=== PATIENT | male | born 1990 | race Caucasian/White ===

== ENCOUNTER 2018-03-07 17:12 | Emergency (ER) | payer BC ==
[2018-03-07 17:17] VITALS: BP 122/80
--- NOTE | 2018-03-07 17:37 | EDPHY ---
H & P Time Seen by Provider: 03/07/18 17:24 HPI/ROS: CHIEF COMPLAINT: Request for prescription for sertraline HISTORY OF PRESENT ILLNESS: 27-year-old male here with chief complaint of worsening anxiety for the last few weeks. He reports difficulty concentrating and racing thoughts. Feels his anxiety has been exacerbated by her recent relationship. 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 He denies any homicidal or suicidal ideation. He has no prior history of bipolar disorder. He takes no other medication and denies any drug or alcohol use. He has taking sertraline before for the same symptoms and improve significantly. He has been off medication for 2 years. ROS As detailed in HPI Smoking Status: Never smoked Physical Exam: General: Alert and oriented. Nontoxic appearing. No acute distress HEENT: Pupils PERRLA. No oral lesions. Cardiopulmonary: Regular rate and rhythm. No lower extremity edema Skin: Fabrica warm and dry. No lesions. Muscle skeletal: Moving all 4 extremities. Equal strength in upper extremities and lower extremities. Ambulatory. Constitutional: Initial Vital Signs Temperature (C) 36.7 C 03/07/18 17:13 Heart Rate 99 03/07/18 17:13 Respiratory Rate 16 03/07/18 17:13 Blood Pressure 122/80 H 03/07/18 17:13 O2 Sat (%) 96 03/07/18 17:13 O2 Delivery Mode Room Air Allergies/Adverse Reactions: No Known Allergies Allergy (Unverified 03/07/18 17:17) Home Medications: Medication Instructions Recorded Sertraline HCl 25 mg PO DAILY #30 tablet 03/07/18 Medical Decision Making ED Course/Re-evaluation: Patient here with signs and symptoms consistent with prior diagnosis of anxiety. He responded well to sertraline sore will start him on this medication at a low dose of 25 mg a day. He has follow-up in 2 weeks disease primary care physician to monitor the response and medication dose. Differential Diagnosis: Cardiac arrhythmia, ACS, electrolyte disturbance, polysubstance abuse, bipolar disorder Departure - Departure Disposition: Home, Routine, Self-Care Clinical Impression: Anxiety Condition: Good Instructions: Generalized Anxiety Disorder (ED) Additional Instructions: Follow-up with her primary care physician as scheduled in the next couple of weeks. Return to the ER for any worsening or worrisome symptoms. Referrals: NONE *PRIMARY CARE P,. [Primary Care Provider] - As per Instructions [facility],. [Clinic] - As per Instructions Prescriptions: Sertraline HCl 25 mg PO DAILY #30 tablet
== END 2018-03-07 17:46 | disposition home or self-care (01) ==
DX: F41.9 Anxiety disorder, unspecified (principal)